=== PATIENT | female | born 1970 | race Caucasian/White ===

== ENCOUNTER 2017-02-28 07:47 | Observation (INO) | payer MEDICARE ==
--- NOTE | ~2017-02-28 | CT127 ---
[facility] A Service of [facility] & [facility] RADIOLOGY TEXT RESULTS PATIENT: PRATIK NORRIS LOCATION: [facility] 317- : [birth year] UNIT #: [id number] AGE: [address]: Deng Gay MD SEX: F ORDER DR: [id number] [facility] [place] [address] [facility]. [place], [place] [address] [id number] I MR#: [id number] Acc #: [id number] NAME: PRATIK NORRIS. : 1970 SEX: F STUDY DATE/TIME: 02/28/2017 16:12 UNIT: [address] ROOM: [facility] STUDY DESCRIPTION: CT Upper Ext Lt Wo Cont Attending Physician: Dequan Clark M.D. Ordering Physician: Dequan Clark M.D. Primary Care Physician: No Primary Care Physician MEDICAL IMAGING REPORT This report is preliminary unless electronic signature is present EXAM CT left shoulder. HISTORY Left shoulder pain for 5 days. No known injury. FINDINGS Thin section axial images performed through the left shoulder without contrast. Multiplanar reconstructed images reviewed at a workstation. The study is significantly degraded due to patient body habitus with associated image noise. This CT exam was performed with one or more of the following radiation dose reduction techniques: automatic exposure control, adjustment of mA and/or kV according to patient size, and iterative reconstruction. No fracture or dislocation. Mild AC joint arthropathy. Deltoid and rotator cuff musculature appears intact. No gross evidence of rotator cuff tear though non-arthrographic CT limited for evaluation of rotator cuff disease. The biceps/long tendon of the biceps cannot be visualized probably related to image noise. No sizeable joint effusion. Visualized left thorax appears normal. Pacemaker noted anterior left chest. IMPRESSION Mild AC joint arthropathy with no other significant pathology identified within the left shoulder. Please note non-arthrographic CT limited for evaluation of rotator cuff tear. If clinical symptoms persist and are clinically warranted further evaluation with CT arthrography could be performed to exclude rotator cuff tear, but no indirect evidence of a rotator cuff tear based on this exam. I suspect the patient's underlying pacemaker precludes MRI scanning. Dictated by... Maribel Alexis M.D. [facility] A Service of [facility] & [facility] RADIOLOGY TEXT RESULTS PATIENT: PRATIK NORRIS LOCATION: [facility] 317-01 : [birth year] UNIT #: [id number] AGE: [address]: Deng Gay MD SEX: F ORDER DR: THIS IS AN ELECTRONICALLY VERIFIED REPORT Maribel Alexis M.D. at 03/03/2017 2:13 PM Mariely TD: 02/28/2017 22:27 JOB #: [id number] MEDICAL IMAGING REPORT Page 1 of 1 COPY
--- NOTE | ~2017-02-28 | DS ---
Unit #: [id number] #: [id number] Patient: PRATIK NORRIS [id number] [address] [address] [id number] I MR#: [id number] NAME: PRATIK NORRIS. ROOM: 317 Age: 46 Sex: F Admission Date: 02/28/2017 : 1970 Discharge Date: 03/02/2017 Attending Physician: Deng Gay M.D. Primary Care Physician: No Primary Care Physician DISCHARGE SUMMARY REASON FOR ADMISSION Left arm pain/acute rhabdomyolysis. HISTORY OF PRESENT ILLNESS/HOSPITAL COURSE Patient is a very pleasant 46-year-old female who, several days ago, underwent a hysterectomy. Per her statement, she stated that it was complicated and she had to remain in the reverse (1) position for several hours during that surgical intervention. When she awoke, she did not feel well. She also complained of left shoulder pain and/or discomfort. However, she was instructed to go home. She presented to our ER for further evaluation. Her initial blood work revealed an elevated CPK level of 4,403, and she was admitted for secondary concern for possible underlying compartment syndrome within the left shoulder. She underwent routine laboratory studies, as well as routine imaging, including CT angiogram chest per PE protocol. This was negative for acute pulmonary embolism. There were no rib fractures or any acute process noted. Lungs were clear. She also underwent a CT of her upper extremity on the left side without contrast. It, too, did not show any acute process. Her initial urinalysis was also positive. Final urine culture result did reveal both Klebsiella, as well as E-coli. ESBL production was confirmed. Sensitivity to Macrobid in regard to her E-coli, as well as indeterminate to her Klebsiella, was made. It was also noted that she was sensitive to both piperacillin/tazobactam for both. At this point in time and after routine laboratory studies, her CK level is currently 2,672. Her creatinine level is 0.8. She has received IV fluids through her hospital course here. She feels, otherwise, well. She is clinically stable for discharge home. She is to follow up with Dr. Greg Brizuela at [facility] within the next week for repeat urinalysis, followup in regard to her urinary tract infection, as well as a repeat BMP and CPK level within the next 7 days. She was instructed to increase her p.o. intake at the time of discharge, as well. FINAL DISCHARGE DIAGNOSES 1. Acute rhabdomyolysis. 2. Left shoulder pain. Unit #: [id number] #: [id number] Patient: PRATIK NORRIS 3. Extended spectrum beta-lactamase urinary tract infection. 4. Hypertension. 5. Hyperlipidemia. 6. Hypothyroidism. 7. Gastroesophageal reflux disease. 8. Sarcoidosis. 9. Prior history of cardiomyopathy. Details unclear. 10. Recent hysterectomy. 11. History of automatic implantable cardioverter-defibrillator placement. FINAL DISCHARGE MEDICATIONS 1. Proventil inhalation solution 1 nebulized solution q.4 p.r.n. 2. ProAir HFA 2 puffs q.6 p.r.n. 3. Symbicort 160/4.5 mcg 2 puffs b.i.d. 4. Amiodarone 200 mg p.o. daily. 5. Tylenol 500 mg p.o. b.i.d. p.r.n. 6. Spiriva 1 inhalation daily. 7. Neurontin 300 mg p.o. t.i.d. 8. Cymbalta 60 mg p.o. daily. 9. Toprol XL 50 mg p.o. daily. 10. Mexitil 200 mg p.o. b.i.d. 11. Colace 100 mg p.o. b.i.d. 12. Bumex 2 mg p.o. t.i.d. 13. Lipitor 40 mg p.o. q.h.s. 14. Ferrous gluconate 325 mg p.o. b.i.d. 15. Carafate 2 grams p.o. b.i.d. 16. Aspirin 81 mg daily. 17. Percocet 5/325 mg 1 tablet p.o. q.4 p.r.n. moderate pain. This is a home medication. No new prescription given. 18. Aldactone 25 mg p.o. daily. 19. Protonix 40 mg p.o. daily. 20. Potassium chloride 20 mEq p.o. b.i.d. 21. Methocarbamol 500 mg p.o. q.6 p.r.n. muscle spasm. 22. Macrobid 100 mg p.o. b.i.d. x7 days. 23. Augmentin 875 mg p.o. b.i.d. x 7 days. FOLLOW UP Patient to follow up with Greg Brizuela, as detailed above, for repeat BMP, CPK, as well as urinalysis, within 7 days. DISCHARGE CONDITION Stable. Dictated by... Lobo Almeida/jud TD: 03/04/2017 08:42 JOB #: [id number] Unit #: [id number] #: [id number] Patient: JRPRATIK K DISCHARGE SUMMARY Page 1 of 1 X Deng Gay MD DISCHARGE SUMMARY
--- NOTE | ~2017-02-28 | EKG ---
PATIENT: PRATIK NORRIS UNIT #: [id number] Ventricular Rate: 60 BPM Atrial Rate: 60 BPM P-R Interval: 198 ms QRS Duration: 176 ms Q-T Interval: 504 ms QTC Calculation(Bezet): 504 ms P [place]: 87 degrees Calculated R [place]: 47 degrees Calculated T [place]: 23 degrees Diagnosis Line: Atrial-paced rhythm Diagnosis Line: Right bundle branch block Diagnosis Line: Possible Inferior infarct , age undetermined Diagnosis Line: Abnormal ECG Diagnosis Line: When compared with ECG of 14-MAY-2015 23:48, Diagnosis Line: No significant change was found Diagnosis Line: Confirmed by NELI HSU MD ([id number]) on Diagnosis Line: 02/28/2017 4:18:49 PM INTERPRETING MD: ANDREA
--- NOTE | ~2017-02-28 | CT16 ---
[facility] A Service of [facility] RADIOLOGY TEXT RESULTS PATIENT: PRATIK NORRIS LOCATION: [facility] : [birth year] UNIT #: [id number] AGE: [address]: VERNA WEATHERS MD SEX: F ORDER DR: [id number] [facility] [address] [facility]. [place], [place] [address] [id number] MR#: [id number] #: [id number] NAME: PRATIK NORRIS : 1970 SEX: F STUDY DATE/TIME: 02/28/2017 10:07 UNIT: [facility] ROOM: STUDY DESCRIPTION: CT Angio Chest for PE Attending Physician: Edis Calero Ordering Physician: Edis Calero Primary Care Physician: Geno Primary Care Physician MEDICAL IMAGING REPORT This report is preliminary unless electronic signature is present EXAM CT angiogram of the chest for pulmonary embolism, 02/28/2017, 1007 hours. CLINICAL HISTORY Left arm and scapular pain for 5 days post hysterectomy. Back pain. COMPARISON CT angiogram of the chest 04/29/2015 and ventilation-perfusion lung scan 07/28/2015. TECHNIQUE Dynamic helical CT angiographic images were obtained from the thoracic inlet through the adrenal glands. 3-D sagittal and coronal reconstructions were performed. Contrast was Isovue-370 100 mL. Total exam DLP is 1278 mGy-cm. This CT exam was performed with one or more of the following radiation dose reduction techniques: automatic exposure control, adjustment of mA and/or kV according to patient size, and iterative reconstruction. FINDINGS Images through the thoracic inlet demonstrate no thyroid lesion or supraclavicular adenopathy. There is a left-sided pacer device with leads over the right atrium and right ventricle. The pulmonary arteries are fairly well opacified with contrast and there are no filling defects to suggest the presence of pulmonary emboli. Aorta is normal in caliber. Cardiac chambers and pericardium are normal. There is no adenopathy. The lung window images demonstrate clear lungs. There is no pneumothorax. Bone window images demonstrate stable degenerative change in the mid to [facility] A Service of [facility] RADIOLOGY TEXT RESULTS PATIENT: PRATIK NORRIS LOCATION: [facility] [id number] : [birth year] UNIT #: [id number] AGE: [address]: VERNA WEATHERS MD SEX: F ORDER DR: lower thoracic spine. There is no fracture. No rib fracture is seen. The left scapula appears normal. IMPRESSION Negative chest CT with PE protocol. There is no evidence of pulmonary embolism or aortic aneurysm. The lungs are clear. There is no pleural effusion, pneumothorax, or fracture in the ribs, spine, or scapula. Dictated by... Kellie River M.D. THIS IS AN ELECTRONICALLY VERIFIED REPORT Kellie River M.D. at 02/28/2017 4:01 PM SERGIO/jennifer TD: 02/28/2017 12:27 JOB #: [id number] MEDICAL IMAGING REPORT Page 1 of 1 COPY
--- NOTE | ~2017-02-28 | HP ---
Unit #: [id number] #: [id number] Patient: PRATIK NORRIS [id number] [address] [address] [id number] I MR#: [id number] NAME: PRATIK NORRIS. ROOM: 02084 Age: 46 Sex: F Admission Date: 02/28/2017 : 1970 Attending Physician: Verna Clark M.D. Primary Care Physician: No Primary Care Physician HISTORY AND PHYSICAL CHIEF COMPLAINT Left arm pain. HISTORY OF PRESENT ILLNESS The patient is a 46-year-old female with a history of a cardiomyopathy and sarcoidosis, status post hysterectomy on last Friday due to the fibroid, presented to the emergency room complaining of the left arm pain. The patient was complaining of the pain at the time of discharge at the other hospital and was told that the patient has a muscle pain and was given a Adrian. However, the patient continues to have pain and it is almost five days and the pain is not gone so she presented to the emergency room for the above reasons. The patient had a workup and it showed the patient's CPK level is 4403 and is being admitted for the above reasons. The patient denies any trauma and has tenderness to the left upper extremity and the shoulder region. She denies any fever, chills, nausea and vomiting. PAST MEDICAL HISTORY History of hypertension, hyperlipidemia, hypothyroidism, GERD, sarcoidosis, cardiomyopathy. PAST SURGICAL HISTORY AICD placement, gallbladder surgery, tubal ligation and hysterectomy. FAMILY HISTORY Reviewed and none. HOME MEDICATIONS Patient is on Tylenol, Procydin, Percocet, Proventil, ProAir, amiodarone, aspirin, Lipitor, Symbicort, Bumex, Colace, senna, Dulcolax, ferrous sulfate, gabapentin, Mucinex, Advil, methocarbamol, Toprol-XL, Mexitil, Protonix, potassium, Aldactone, Carafate and Spiriva. ALLERGIES No known drug allergies. SOCIAL HISTORY Negative; no history of smoking cigarettes, alcohol or any illicit drug abuse. REVIEW OF SYMPTOMS Fourteen-point review of symptoms performed and only pertinent positive findings as described above, remaining are negative. Unit #: [id number] #: [id number] Patient: PRATIK NORRIS PHYSICAL EXAMINATION GENERAL APPEARANCE: On examination the patient is lying on a bed not in acute distress. VITAL SIGNS: Temperature is 98.2, pulse 66, respiratory rate 16, blood pressure 111/52, sating 100% at room air. HEENT: Head atraumatic/normocephalic. Pupils equal, round and reacting to light and accommodation. Extraocular movements are intact. Dry mucous membrane. NECK: Supple. LUNGS: Clear to auscultation. HEART: Regular rate and rhythm. ABDOMEN: Soft, positive bowel sounds. Status post laparoscopic hysterectomy with the incision clean, dry and intact. EXTREMITIES: Tenderness at the left upper extremity at the region of the shoulder and the range of motion is decreased secondary to the pain. NEUROLOGIC: Alert, awake, oriented. No gross focal motor deficit. DIAGNOSTIC STUDIES LABORATORY DATA: Lactic acid is 1.3. UA shows trace leukocyte esterase. Urine WBCs 5 to 10. CPK is 4403 and sodium 137, potassium 3.3, chloride 99, bicarb 32, glucose 99, creatinine 0.9, calcium is 8.4. Troponin less than 0.05. WBC 14.5, hemoglobin 11.1, hematocrit 35.2, platelets 296. IMAGING: CT of the chest was done for unknown reason by the nurse practitioner at the ER; negative chest CT with PE protocol. There is no evidence of pulmonary embolism or aortic aneurysm. The lungs are clear. There is no pleural effusion, pneumothorax or fractures in the ribs, spine or scapulae. ASSESSMENT 1. Rhabdomyolysis. 2. Hypokalemia. 3. Left upper extremity pain. PLAN Plan to admit the patient to the observation with the telemetry. Continue with the IV fluids 125 mL per hour for a liter and hold the Lipitor. I will check the x-ray of the left upper extremity and if patient continues to have bad pain then might consider the CT of the upper extremity without contrast and then continue with the physical therapy and the ice packs for muscle spasms and further recommendations will follow. Dictated by Lobo Lance TD: 02/28/2017 15:21 JOB #: [id number] Unit #: [id number] #: [id number] Patient: PRATIK NORRIS HISTORY AND PHYSICAL Page 1 of 1 X VERNA CLARK MD HISTORY AND PHYSICAL
--- NOTE | ~2017-02-28 | BMI ---
[facility] Nutrition Therapy DATE: 03/01/17 Patient: PRATIK NORRIS Physician: OSITO Address: [address] [place] [address] Room/Bed: [address] [place] [address], Zip: [place] [address] Admit Date: 02/28/17 Date of : [birth year] Height: 5 0 Weight: 314 142.6 HIGH BMI NOTE: DX: 46 Y.O. FEMALE ADMITTED FOR LEFT ARM PAIN, NO INJURY ANTHROPOMETRICS: 5'4", WT: 310# (140 KG), BMI: 53.2 DIET: HEALTHY HEART RECOMMENDATIONS: 1. CONTINUE CURRENT DIET ORDER ABOVE TO PROMOTE GRADUAL WEIGHT LOSS TOWARDS HEALTHY BMI (19.0-25.0) OR +/-10%IBW RD WILL F/U PER PROTOCOL Respectfully, ASHLEY MORA MS, RD, LD [facility] Nutrition[facility] cc: client file
[~2017-02-28 07:47] MED LIST: ACETAMINOPHEN PO; ACETAMINOPHEN500 M3 PO; ACETAMINOPHEN500 M4 PO; ALB/IPRATROPIUM/1 E1 INH; ALBUTEROL 0.5ML INH; ALBUTEROL17 GM INH; ALDACTONE PO; ALDACTONE25 MG PO; AMIODARONE PO; ASPIRIN EC81 M1 PO; ASPIRIN81 M2 PO; ASPIRIN81 MG PO; BENZONATATE PO; BIOTIN1 M1 PO; BUMETANIDE2 M1 PO; BUMEX PO; BUMEX2 MG PO; CARAFATE PO; CARAFATE1 G PO; CARAFATE1 GM PO; CARVEDILOL12.5 MG PO; CORDARONE200 M1 PO; COREG3.125 MG PO; CYMBALTA PO; DOC-Q-LACE100 MG PO; DOCU SOFT100 M1 PO; EXCEDRIN MIGRAI1 TA1; FLEXERIL10 MG PO; FLONASE16 GM; GUAIFENESIN600 M1 PO; HYDROCODONE/ACETAMIN; IBUPROFEN; KCL PO; KLOR-CON PO; LEVAQUIN750 MG PO; LIPITOR PO; LIPITOR40 MG PO; LISINOPRIL5 MG PO; METHOCARBAMOL500 MG PO; METOPROLOL SUCC50 MG PO; MEXILETINE HCL PO; MEXILETINE HCL200 M1 PO; MEXILETINE PO; MEXITIL200 MG PO; MUCUS RELIEF DM1 TA1 PO; PANTOPRAZOLE SO40 MG PO; PREDNISONE PO; PREDNISONE10 MG PO; PROTONIX PO; QVAR7.3 G1 IH; QVAR7.3 G1 INH; ROBAXIN PO; ROBAXIN500 MG PO; SPIRONOLACTONE50 MG PO; STOOL SOFTENER50 MG PO; SYMBICORT; SYMBICORT 16010.2 GM INH; SYMBICORT INH; TOPROL XL PO; TOPROL XL50 MG PO; TUMS; ZESTRIL5 MG PO; ZITHROMAX100 MG/5 M PO
[2017-02-28 09:18] LABS: BASOPHIL# 0.1 X10e3 (0-0.3); BASOPHIL% 0.4 % (0-2.5); EOSINOPHIL# 0.4 X10e3 (0-0.7); EOSINOPHIL% 2.7 % (0.0-7.0); HEMATOCRIT 35.2 % (35.0-45.0); HEMOGLOBIN 11.1 gm/dL (12.0-16.0); LYMPHOCYTE# 2.9 X10e3 (1.0-3.5); LYMPHOCYTE% 19.8 % (17.0-45.0); MEAN CELL VOLUME 88.3 FL (83-96); MEAN CORPUSCULAR HEMOGLOBIN 27.8 PG (28-34); MEAN CORPUSCULAR HGB CONC 31.5 g/dL (30-36); MEAN PLATELET VOLUME 7.3 FL (6.5-11.5); MONOCYTE# 1.2 X10e3 (0-1.0); MONOCYTE% 8.6 % (3.0-12.0); NEUTROPHIL# 9.9 X10e3 (1.5-7.1); NEUTROPHIL% 68.5 % (40-75); PLATELET COUNT 296 X10e3 (140-420); RED BLOOD COUNT 3.99 X10e (3.90-5.30); RED CELL DISTRIBUTION WIDTH 21.1 % (11.0-15.5); WHITE BLOOD COUNT 14.5 X10e3 (4.0-10.5)
[2017-02-28 09:20] LABS: DIFF IND NO
[2017-02-28 09:51] LABS: POC - CKMB 14.3 ng/mL (0.0-7.9); POC - TROPONIN <0.05 ng/mL (<=0.05)
[2017-02-28 09:55] LABS: BUN/CREATININE RATIO 13.33; CALCIUM SERUM 8.4 mg/dL (8.4-10.2); CREATININE SERUM 0.9 mg/dL (0.6-1.4); GLOM FILT RATE Estimated 75.7 mL/min (>60); POTASSIUM 3.3 mmol/L (3.5-5.1)
[2017-02-28 12:04] LABS: URINE SOURCE CLEAN CATCH
[2017-02-28 12:10] LABS: URINE APPEARANCE CLEAR; URINE BILIRUBIN NEG (NEG); URINE BLOOD TRACE (NEG); URINE COLOR YELLOW; URINE GLUCOSE NEG (NEG); URINE KETONE NEG (NEG); URINE LEUKOCYTE ESTERASE TRACE (NEG); URINE NITRATE NEG (NEG); URINE PROTEIN NEG (NEG); URINE SPECIFIC GRAVITY 1.018 (1.003-1.035); URINE UROBILINOGEN 0.2 MG/DL (NEG)
[2017-02-28 12:12] LABS: CULTURE INDICATED? YES; URINE BACTERIA AUWI NEG (NEGATIVE); URINE SQUAMOUS EPITHELIAL CELL OCC /[HPF]
[2017-02-28] MEDS ORDERED: MAPAP500 MG PO (12:18)
[2017-02-28] MEDS ORDERED: PERCOCET5/325 PO (12:19)
[2017-02-28] MEDS ORDERED: CORICIDIN HBP1 EACH PO (12:19)
[2017-02-28] MEDS ORDERED: PROAIR HFA8.5 GM INH (12:20)
[2017-02-28] MEDS ORDERED: ALBUTEROL 0.5ML NEB (12:20)
[2017-02-28] MEDS ORDERED: AMIODARONE HCL200 MG PO (12:20)
[2017-02-28] MEDS ORDERED: ASPIRIN81 M2 PO (12:21)
[2017-02-28] MEDS ORDERED: LIPITOR40 MG PO (12:21)
[2017-02-28] MEDS ORDERED: SYMBICORT INH (12:22)
[2017-02-28] MEDS ORDERED: BUMEX2 MG PO (12:22)
[2017-02-28] MEDS ORDERED: DOCUSATE SODIU100 MG PO (12:22)
[2017-02-28] MEDS ORDERED: SENNA8.6 M1 PO (12:23)
[2017-02-28] MEDS ORDERED: DULOXETINE HCL60 M1 PO (12:23)
[2017-02-28] MEDS ORDERED: FERRO-TIME325 MG PO (12:23)
[2017-02-28] MEDS ORDERED: IBUPROFEN PO (12:24)
[2017-02-28] MEDS ORDERED: GABAPENTIN300 M2 PO (12:24)
[2017-02-28] MEDS ORDERED: MUCINEX DM ER1 EACH PO (12:24)
[2017-02-28] MEDS ORDERED: PANTOPRAZOLE SO40 MG PO (12:25)
[2017-02-28] MEDS ORDERED: MEXITIL PO (12:25)
[2017-02-28] MEDS ORDERED: TOPROL XL50 MG PO (12:25)
[2017-02-28] MEDS ORDERED: ROBAXIN PO (12:25)
[2017-02-28] MEDS ORDERED: POTASSIUM CHLO20 ME1 PO (12:26)
[2017-02-28] MEDS ORDERED: CARAFATE PO (12:26)
[2017-02-28] MEDS ORDERED: ALDACTONE PO (12:26)
[2017-02-28] MEDS ORDERED: BACTRIM 400-801 EACH PO (12:28)
[2017-02-28] MEDS ORDERED: SPIRIVA RESPIMAT4 G1 INH (12:28)
[2017-03-01 05:45] LABS: BASOPHIL# 0.1 X10e3 (0-0.3); BASOPHIL% 0.7 % (0-2.5); EOSINOPHIL# 0.4 X10e3 (0-0.7); EOSINOPHIL% 2.7 % (0.0-7.0); HEMATOCRIT 38.1 % (35.0-45.0); HEMOGLOBIN 11.9 gm/dL (12.0-16.0); LYMPHOCYTE# 2.1 X10e3 (1.0-3.5); LYMPHOCYTE% 13.8 % (17.0-45.0); MEAN CELL VOLUME 89.1 FL (83-96); MEAN CORPUSCULAR HEMOGLOBIN 27.8 PG (28-34); MEAN CORPUSCULAR HGB CONC 31.2 g/dL (30-36); MEAN PLATELET VOLUME 7.5 FL (6.5-11.5); MONOCYTE# 1.4 X10e3 (0-1.0); MONOCYTE% 9.5 % (3.0-12.0); NEUTROPHIL# 10.9 X10e3 (1.5-7.1); NEUTROPHIL% 73.3 % (40-75); PLATELET COUNT 306 X10e3 (140-420); RED BLOOD COUNT 4.28 X10e (3.90-5.30); RED CELL DISTRIBUTION WIDTH 20.4 % (11.0-15.5); WHITE BLOOD COUNT 14.9 X10e3 (4.0-10.5)
[2017-03-01 06:01] LABS: DIFF IND NO
[2017-03-01 06:24] LABS: CALCIUM SERUM 8.2 mg/dL (8.4-10.2); CREATININE SERUM 0.8 mg/dL (0.6-1.4); GLOM FILT RATE Estimated 87.3 mL/min (>60); POTASSIUM 3.6 mmol/L (3.5-5.1)
[2017-03-02 06:20] LABS: HEMATOCRIT 34.8 % (35.0-45.0); HEMOGLOBIN 11.2 gm/dL (12.0-16.0); MEAN CELL VOLUME 87.4 FL (83-96); MEAN CORPUSCULAR HEMOGLOBIN 28.1 PG (28-34); MEAN CORPUSCULAR HGB CONC 32.1 g/dL (30-36); MEAN PLATELET VOLUME 7.4 FL (6.5-11.5); RED BLOOD COUNT 3.98 X10e (3.90-5.30); RED CELL DISTRIBUTION WIDTH 20.5 % (11.0-15.5); WHITE BLOOD COUNT 15.3 X10e3 (4.0-10.5)
[2017-03-02 07:27] LABS: BUN/CREATININE RATIO 11.25; CALCIUM SERUM 8.8 mg/dL (8.4-10.2); CREATININE SERUM 0.8 mg/dL (0.6-1.4); GLOM FILT RATE Estimated 87.3 mL/min (>60); POTASSIUM 4.1 mmol/L (3.5-5.1)
[2017-03-02] MEDS ORDERED: MACROBID100 M1 PO (11:19)
[2017-03-02] MEDS ORDERED: AUGMENTIN PO (11:20)
== END 2017-03-02 12:33 | disposition home or self-care (01) ==
LOC: CED 07:47 → CEDOF 13:15 → C3A PCU 14:03 → CED 14:03 → CEDOF 14:03 → C3A PCU 16:43 → CEDOF 16:43 → C3A PCU 03-01 06:01
PROVIDERS: Family Medicine; Internal Medicine; Nurse Practitioner
DX: M62.82 Rhabdomyolysis (principal); M25.512 Pain in left shoulder; N39.0 Urinary tract infection, site not specified; B96.89 Other specified bacterial agents as the cause of diseases classified elsewhere; I10 Essential (primary) hypertension; E78.5 Hyperlipidemia, unspecified; E03.9 Hypothyroidism, unspecified; K21.9 Gastro-esophageal reflux disease without esophagitis; D86.9 Sarcoidosis, unspecified; Z90.710 Acquired absence of both cervix and uterus; Z95.810 Presence of automatic (implantable) cardiac defibrillator; Z79.82 Long term (current) use of aspirin
CPT/HCPCS: 36415; 71275; 73200; 80048; 81003; 82550; 82553; 83605; 84443; 84484; 85025; 85027; 87086; 87088; 87186; 93005; 94640; 94664; 94760; 96361; 96374; 96375; 96376; 97110; 97161; 97166; 97535; 99285; G0378; G8978-GP; G8979-GP; G8980-GP; G8984-GO; G8985-GO; J0696; J2930; Q9967

== ENCOUNTER 2017-05-10 11:36 | Emergency (ER) | payer MEDICARE ==
[~2017-05-10] VITALS: Ht 152.4 cm; Wt 137.0 kg
[~2017-05-10 11:36] MED LIST changes: +ALBUTEROL 0.5ML NEB; +AMIODARONE HCL200 MG PO; +AUGMENTIN PO; +BACTRIM 400-801 EACH PO; +CORICIDIN HBP1 EACH PO; +DOCUSATE SODIU100 MG PO; +DULOXETINE HCL60 M1 PO; +FERRO-TIME325 MG PO; +GABAPENTIN300 M2 PO; +IBUPROFEN PO; +MACROBID100 M1 PO; +MAPAP500 MG PO; +MEXITIL PO; +MUCINEX DM ER1 EACH PO; +PERCOCET5/325 PO; +POTASSIUM CHLO20 ME1 PO; +PROAIR HFA8.5 GM INH; +SENNA8.6 M1 PO; +SPIRIVA RESPIMAT4 G1 INH
== END 2017-05-10 13:15 | disposition home or self-care (01) ==
LOC: CFTX 11:36 → CED 11:36 → CFTX 13:06
DX: G89.18 Other acute postprocedural pain (principal); I11.0 Hypertensive heart disease with heart failure; I25.2 Old myocardial infarction; F32.9 Major depressive disorder, single episode, unspecified; K21.9 Gastro-esophageal reflux disease without esophagitis; Z87.891 Personal history of nicotine dependence; Z79.899 Other long term (current) drug therapy; Z79.82 Long term (current) use of aspirin
CPT/HCPCS: 99283